=== PATIENT | male | born 1975 | race Caucasian/White ===

== ENCOUNTER 2016-08-24 04:01 | Emergency (ER) | payer OTHER ==
[2016-08-24] MEDS ORDERED: TUSSIONEX SUSP UDC ONE (05:05)
[2016-08-24] MEDS ORDERED: METHYLPRED SOD SUCC 125 MG/2 ML VIAL ONE (05:06)
== END 2016-08-24 05:15 | disposition home or self-care (01) ==
LOC: ER 04:01
DX: J20.8 Acute bronchitis due to other specified organisms (principal)
CPT/HCPCS: 71020; 96372